=== PATIENT | female | born 1945 | race Two or more races ===

== ENCOUNTER 2021-05-16 19:24 | Inpatient (IN) | payer MEDICAID, OTHER ==
[~2021-05-16] VITALS: Ht 157.5 cm; Wt 66.5 kg
[2021-05-16 20:25] LABS: Basophils # (auto) 0 10 ^3/uL (0-0.2); Basophils % (auto) 0.6 % (0.0-2.0); Eosinophils # (auto) 0 10 ^3/uL (0-0.8); Eosinophils % (auto) 0.3 % (0.0-7.0); Hematocrit 39.8 % (36.0-46.0); Hemoglobin 13.2 g/dL (12.2-16.2); Lymphocytes # (auto) 1.9 10 ^3/uL (0.4-5.4); Mean Corpuscular Hemoglobin 30.7 pg (28.0-32.0); Mean Corpuscular Hgb Conc. 33.1 g/dL (32.0-36.0); Mean Corpuscular Volume 92.5 fL (80.0-100.0); Monocytes # (auto) 0.5 10 ^3/uL (0-1.3); Monocytes % (auto) 7.7 % (0.0-12.0); Neutrophils # (auto) 4.4 10 ^3/uL (1.6-8.6); Neutrophils % (auto) 64.4 % (37.0-80.0); Nucleated Red Blood Cells % 0.1 %; Red Cell Distribution Width 13.3 % (11.8-14.3); White Blood Cell 6.9 10^3/uL (4.4-10.8)
[2021-05-16 20:39] LABS: INR 1.05 (0.9-1.15); Partial Thromboplastin Time 24.4 sec (23.6-33.0)
[2021-05-16 20:43] LABS: Albumin 3.7 g/dL (3.4-5.0); Calcium 8.3 mg/dL (8.5-10.1)
[2021-05-16 20:50] LABS: BUN/Creatinine Ratio 16.4; Bilirubin, Total 0.4 mg/dL (0.2-1.0); Total Protein 6.8 g/dL (6.4-8.2)
[2021-05-16] MEDS ORDERED: ACETAMINOPHEN 325 MG TAB PO PRN (21:30)
[2021-05-16] MEDS: MORPHINE SULFATE INJECTION 2 MG/ML SYRG IV PRN (22:38)
[2021-05-16] MEDS: ONDANSETRON HCL 4 MG/2 ML VIAL IV PRN (22:39)
[2021-05-17] MEDS: HYDROcodone-ACET 5/325MG TAB PO PRN ×4 (00:20→22:22)
[2021-05-17 05:00] VITALS: BP 113/62
[2021-05-17 06:02] LABS: Basophils # (auto) 0 10 ^3/uL (0-0.2); Basophils % (auto) 0.1 % (0.0-2.0); Eosinophils # (auto) 0 10 ^3/uL (0-0.8); Hematocrit 34.6 % (36.0-46.0); Hemoglobin 11.7 g/dL (12.2-16.2); Lymphocytes # (auto) 0.7 10 ^3/uL (0.4-5.4); Lymphocytes % (auto) 9.3 % (10.0-50.0); Mean Corpuscular Hemoglobin 30.9 pg (28.0-32.0); Mean Corpuscular Hgb Conc. 33.7 g/dL (32.0-36.0); Mean Corpuscular Volume 91.8 fL (80.0-100.0); Monocytes # (auto) 0.7 10 ^3/uL (0-1.3); Monocytes % (auto) 8.3 % (0.0-12.0); Neutrophils # (auto) 6.6 10 ^3/uL (1.6-8.6); Neutrophils % (auto) 82.3 % (37.0-80.0); Red Blood Cells 3.77 10^6/uL (4.0-5.20); Red Cell Distribution Width 13.3 % (11.8-14.3)
[2021-05-17 06:23] LABS: Calcium 8.2 mg/dL (8.5-10.1); Potassium 4.5 mmol/L (3.5-5.1)
[2021-05-17 06:25] LABS: BUN/Creatinine Ratio 17.3
[2021-05-17 08:00] VITALS: BP 118/65
[2021-05-17] MEDS: MORPHINE SULFATE INJECTION 2 MG/ML SYRG IV PRN ×2 (08:16→14:00)
[2021-05-17 09:00] VITALS: BP 118/65
[2021-05-17] MEDS: PANTOPRAZOLE 40 MG TAB PO SCH ×2 (09:12→09:14)
[2021-05-17 13:00] VITALS: BP 130/71
[2021-05-17 17:00] VITALS: BP 123/71
[2021-05-17 22:00] VITALS: BP 125/68
[2021-05-18] MEDS: MORPHINE SULFATE INJECTION 2 MG/ML SYRG IV PRN ×4 (00:54→20:43)
[2021-05-18 05:00] VITALS: BP 109/64
[2021-05-18 09:00] VITALS: BP 117/60
[2021-05-18 13:17] VITALS: BP 120/56
[2021-05-18] MEDS ORDERED: ceFAZolin 1GM/50ML 100 ML IV ONE (15:50)
[2021-05-18] MEDS ORDERED: fentaNYL CITRATE 100 MCG/2 ML VL ONE (16:18)
[2021-05-18] MEDS ORDERED: MIDAZOLAM HCL 2MG/2ML 2ml VIAL (1mg/ml) ONE ×2 (16:18→17:19)
[2021-05-18] MEDS ORDERED: PROPOFOL 10 MG/ML 20 ML IV ONE (16:19)
[2021-05-18] MEDS ORDERED: DexAMETHasone SOD PHOS 10MG/1ML VIAL INJ ONE (16:19)
[2021-05-18] MEDS ORDERED: EPINEPHrine HCL 1 MG/1 ML AMP ONE (16:20)
[2021-05-18] MEDS ORDERED: VANCOMYCIN HCL 1000 MG VL ONE (16:20)
[2021-05-18] MEDS ORDERED: TETRACAINE 1% INJ 2 ML VIAL IJ ONE (16:20)
[2021-05-18] MEDS ORDERED: ONDANSETRON HCL 4 MG/2 ML VIAL IV PRN (17:30)
[2021-05-18] MEDS ORDERED: HYDROmorphone HCL 2 MG/ML VL IV PRN (17:30)
[2021-05-18] MEDS ORDERED: LABETALOL HCL 5 MG/ML 4ML SYRINGE IV PRN (17:30)
[2021-05-18] MEDS ORDERED: ePHEDrine SULFATE 50 MG/ML AMP IV PRN (17:30)
[2021-05-18] MEDS ORDERED: MORPHINE SULFATE INJECTION 2 MG/ML SYRG IV PRN (17:30)
[2021-05-18] MEDS ORDERED: MIDAZOLAM HCL 2MG/2ML 2ml VIAL (1mg/ml) IV PRN (17:30)
[2021-05-18] MEDS ORDERED: HYDROcodone-ACET 10/325MG TAB PO PRN (18:30)
[2021-05-18] MEDS ORDERED: ACETAMINOPHEN 325 MG TAB PO PRN (18:30)
[2021-05-18] MEDS: LACTATED RINGER'S 1,000 ML IV SCH (19:00)
[2021-05-18 21:54] VITALS: BP 121/70
[2021-05-18] MEDS: SODIUM CHLOR 0.9% PF (SALINE LOCK) 10ML VIAL/SYR IV SCH (22:34)
[2021-05-18] MEDS: ceFAZolin 1GM/50ML 50 ML IV SCH (23:57)
[2021-05-19] MEDS: MORPHINE SULFATE INJECTION 2 MG/ML SYRG IV PRN ×3 (03:01→17:16)
[2021-05-19] MEDS: SODIUM CHLOR 0.9% PF (SALINE LOCK) 10ML VIAL/SYR IV SCH ×3 (05:08→21:58)
[2021-05-19] MEDS: LACTATED RINGER'S 1,000 ML IV SCH ×2 (05:08→18:55)
[2021-05-19 05:41] VITALS: BP 119/62
[2021-05-19 06:59] LABS: Basophils # (auto) 0 10 ^3/uL (0-0.2); Eosinophils # (auto) 0 10 ^3/uL (0-0.8); Hematocrit 25.2 % (36.0-46.0); Hemoglobin 8.8 g/dL (12.2-16.2); Lymphocytes # (auto) 0.6 10 ^3/uL (0.4-5.4); Lymphocytes % (auto) 8.6 % (10.0-50.0); Mean Corpuscular Hgb Conc. 34.9 g/dL (32.0-36.0); Mean Corpuscular Volume 91.9 fL (80.0-100.0); Monocytes # (auto) 0.5 10 ^3/uL (0-1.3); Monocytes % (auto) 8.3 % (0.0-12.0); Neutrophils # (auto) 5.4 10 ^3/uL (1.6-8.6); Neutrophils % (auto) 83.1 % (37.0-80.0); Red Blood Cells 2.74 10^6/uL (4.0-5.20); Red Cell Distribution Width 13.2 % (11.8-14.3); White Blood Cell 6.5 10^3/uL (4.4-10.8)
[2021-05-19 07:06] LABS: BUN/Creatinine Ratio 17.2; Calcium 7.8 mg/dL (8.5-10.1); Potassium 4.3 mmol/L (3.5-5.1)
[2021-05-19 09:00] VITALS: BP 112/62
[2021-05-19] MEDS: ENOXAPARIN SOD 40 MG/0.4 ML SYRINGE SC SCH ×2 (09:08→17:16)
[2021-05-19] MEDS: ceFAZolin 1GM/50ML 50 ML IV SCH (09:08)
[2021-05-19] MEDS: ONDANSETRON HCL 4 MG/2 ML VIAL IV PRN ×2 (09:16→17:16)
[2021-05-19 13:00] VITALS: BP 113/58
[2021-05-19 17:00] VITALS: BP 128/64
[2021-05-19 21:30] VITALS: BP 136/68
[2021-05-20] MEDS: LACTATED RINGER'S 1,000 ML IV SCH ×2 (00:30→10:30)
[2021-05-20 05:00] VITALS: BP 122/58
[2021-05-20] MEDS: SODIUM CHLOR 0.9% PF (SALINE LOCK) 10ML VIAL/SYR IV SCH (05:31)
[2021-05-20 09:00] VITALS: BP 127/62
[2021-05-20 10:17] VITALS: BP 122/58
== END 2021-05-20 14:05 | disposition home health service (06) | DRG 308 ==
LOC: EDBD 19:24 → ER 19:31 → OVERFLOW 21:26 → CENTRAL 23:40
PROVIDERS: ADMIT Nurse Practitioner; ATTEND Family Medicine
PROC: 0QS636Z Reposition Right Upper Femur with Intramedullary Internal Fixation Device, Percutaneous Approach (ICD-10-PCS; principal; 2021-05-18 16:40)
DX: S72.21XA Displaced subtrochanteric fracture of right femur, initial encounter for closed fracture (principal); D62 Acute posthemorrhagic anemia; W06.XXXA Fall from bed, initial encounter; E11.9 Type 2 diabetes mellitus without complications; Z20.822 Contact with and (suspected) exposure to COVID-19; Z91.81 History of falling; Z90.49 Acquired absence of other specified parts of digestive tract; Y93.89 Activity, other specified; Y92.89 Other specified places as the place of occurrence of the external cause; Y99.8 Other external cause status
CPT/HCPCS: 29515; 36415; 71045; 73502; 76000; 80048; 80053; 84484; 85025; 85610; 85730; 86850; 86900; 86901; 87426; 93005; 96374; 96375; 97110; 97116; 97163; C1713; C1769; G0378; J0171; J0690; J1100; J2250; J2405; J2704